=== PATIENT | male | born 1980 | race Caucasian/White ===

== ENCOUNTER 2017-01-16 07:35 | Emergency (ER) | payer SELFPAY ==
[~2017-01-16] VITALS: Ht 180.3 cm; Wt 81.6 kg
[~2017-01-16 07:35] MED LIST: AMOXIL500 M1 PO; BACTRIM DS 8001 TA1 PO; DAYPRO600 M1 PO; MEDROL DOSEPAK4 MG PO; MOTRIN800 MG PO; NKHM PO; PHENERGAN W/DM120 ML PO; PREDNICOT10 MG PO; ROBAXIN750 MG PO; TYLENOL COLD HE1 TAB PO; VICODIN 500 MG-1 TAB PO
[2017-01-16 07:39] VITALS: BP 140/90
[2017-01-16] MEDS ORDERED: AMOXICILLIN500 M2 PO (08:22)
[2017-01-16] MEDS ORDERED: IBU800 M1 PO (08:22)
== END 2017-01-16 08:39 | disposition home or self-care (01) ==
LOC: ED 07:35
DX: K04.7 Periapical abscess without sinus (principal); F17.200 Nicotine dependence, unspecified, uncomplicated; Z79.899 Other long term (current) drug therapy

== ENCOUNTER 2020-06-22 01:25 | Emergency (ER) | payer OTHER ==
[~2020-06-22] VITALS: Ht 182.8 cm
[~2020-06-22 01:25] MED LIST changes: +AMOXICILLIN500 M2 PO; +IBU800 M1 PO
[2020-06-22 01:36] VITALS: BP 147/88
[2020-06-22] MEDS ORDERED: AUGMENTIN 875875 MG PO (02:24)
== END 2020-06-22 02:31 | disposition home or self-care (01) ==
LOC: ED 01:25
DX: K04.01 Reversible pulpitis (principal); K02.9 Dental caries, unspecified; F17.200 Nicotine dependence, unspecified, uncomplicated; Z79.899 Other long term (current) drug therapy